=== PATIENT | male | born 1950 | race Caucasian/White ===

== ENCOUNTER 2017-05-15 03:15 | Emergency (ER) | payer MEDICARE ==
[~2017-05-15] VITALS: Ht 182.9 cm; Wt 108.3 kg
[2017-05-15] MEDS ORDERED: ONDANSETRON 2MG/ML, 2ML IVPush ONE (04:00)
[2017-05-15] MEDS ORDERED: SODIUM CHLORIDE 0.9% 1,000ML IVBOLUS ONE (04:00)
[2017-05-15] MEDS ORDERED: KETOROLAC 30 MG/1 ML IVPush ONE (04:00)
[2017-05-15] MEDS ORDERED: KETOROLAC 30 MG/1 ML ONE (04:26)
[2017-05-15] MEDS ORDERED: ONDANSETRON 2MG/ML, 2ML ONE (04:26)
[2017-05-15 04:35] LABS: ASPARTATE AMINO TRANSFERASE 39 U/L (15-37); BLOOD UREA NITROGEN 23 mg/dL (7-18)
[2017-05-15] MEDS ORDERED: METF500T4 PO (04:56)
[2017-05-15 05:33] LABS: PATH.CAST-FLAG NOT PRESENT; SPERM-FLAG NOT PRESENT; SRC-FLAG NOT PRESENT; XTAL-FLAG NOT PRESENT; YLC-FLAG NOT PRESENT
[2017-05-15 06:06] VITALS: BP 144/81
== END 2017-05-15 06:08 | disposition home or self-care (01) ==
LOC: ED 05:44
DX: N13.2 Hydronephrosis with renal and ureteral calculous obstruction (principal); I10 Essential (primary) hypertension; E11.9 Type 2 diabetes mellitus without complications
CPT/HCPCS: 36415; 74176; 80053; 81001; 83690; 85025; 96361; 96374; 96375; 99285; J1885; J2405; J7030